=== PATIENT | female | born 1985 ===

== ENCOUNTER 2023-11-24 16:08 | Emergency (ER) | payer OTHER ==
[~2023-11-24] VITALS: Ht 160 cm; Wt 86.0 kg
[2023-11-24] MEDS: ONDANSETRON HCL 4 MG TABLET PO ONE (17:37)
[2023-11-24] MEDS: ACETAMINOPHEN 500 MG TABLET PO ONE (17:37)
[2023-11-24 19:44] VITALS: BP 129/69; PULSE 101; RESP 20; TEMP 97.3
== END 2023-11-24 19:56 | disposition home or self-care (01) ==
LOC: EMS 16:08
DX: S63.642A Sprain of metacarpophalangeal joint of left thumb, initial encounter (principal); S00.83XA Contusion of other part of head, initial encounter; Z88.1 Allergy status to other antibiotic agents; Z88.8 Allergy status to other drugs, medicaments and biological substances; Y04.8XXA Assault by other bodily force, initial encounter; Y93.89 Activity, other specified; Y92.89 Other specified places as the place of occurrence of the external cause; Y99.8 Other external cause status
CPT/HCPCS: 99284; 70450; 73140; Q0162